=== PATIENT | female | born 1995 | race Hispanic/Latino ===

== ENCOUNTER 2016-10-14 13:38 | Emergency (ER) | payer OTHER ==
[2016-10-14 13:47] VITALS: TEMP 97.9; O2SAT 99
[2016-10-14] MEDS ORDERED: Naproxen 550 mg Tab PO STA (14:46)
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
[2016-10-14] MEDS ORDERED: Naproxen 550 mg Tab PO ONE (14:53)
[2016-10-14 15:10] VITALS: BP 108/72; PULSE 69; RESP 18
== END 2016-10-14 15:11 | disposition home or self-care (01) ==
LOC: C.ER 13:38
DX: S39.012A Strain of muscle, fascia and tendon of lower back, initial encounter (principal); V49.40XA Driver injured in collision with unspecified motor vehicles in traffic accident, initial encounter